=== PATIENT | male | born 1945 | race Caucasian/White ===

== ENCOUNTER → 2017-01-03 | Outpatient (CLI) | payer OTHER ==
[2017-01-03 13:25] LABS: BASO % 0.5 % (0.0-1.0); EOS # 0.2 K/mm3 (0.0-0.50); EOS % 3.8 % (0.0-3.0); LARGE UNSTAINED CELL # 0.1 K/mm3 (0.0-0.4); LARGE UNSTAINED CELL % 2.5 % (0.0-4.0); LYMPH # 1.6 K/mm3 (1.5-4.5); LYMPH % 28.3 % (24.0-44.0); MEAN CORPUSCULAR HGB CONC 34.4 g/dl (32.0-36.5); MEAN CORPUSCULAR VOLUME 96.1 fl (80.0-96.0); MONO # 0.3 K/mm3 (0.0-0.8); MONO % 6.4 % (0.0-5.0); NEUTROPHILS # 3.2 K/mm3 (1.8-7.7); NEUTROPHILS % 58.5 % (36.0-66.0); PLATELET COUNT, AUTOMATED 248 k/mm3 (150-450); RED CELL DISTRIBUTION WIDTH 12.9 % (11.5-14.5); WHITE BLOOD COUNT 5.4 K/mm3 (4.0-10.0)
[2017-01-03 14:25] LABS: ALBUMIN/GLOBULIN RATIO 1.38 (1.00-1.93); BILIRUBIN,TOTAL 0.5 MG/DL (0.2-1.0); CALCIUM LEVEL 9.2 MG/DL (8.8-10.2); CREATININE FOR GFR 1.36 MG/DL (0.70-1.30); GLOMERULAR FILTRATION RATE 55.3 (>49); POTASSIUM SERUM 4.8 MEQ/L (3.5-5.1); TOTAL PROTEIN 6.9 GM/DL (6.4-8.2)
== END ==
LOC: M SMT 07:49
PROVIDERS: ATTEND Family Medicine
DX: E11.22 Type 2 diabetes mellitus with diabetic chronic kidney disease (principal)

== ENCOUNTER → 2017-01-31 | Outpatient (CLI) | payer OTHER ==
--- NOTE | 2017-01-31 11:14 | REP ---
RIGHT SHOULDER SERIES: Three views of the right shoulder are performed. There is no acute fracture or dislocation. There is mild narrowing and spurring at the acromioclavicular and glenohumeral joints. IMPRESSION: Mild degenerative changes. Signed by Maykel Wilson MD 01/31/2017 12:21 P
== END ==
LOC: M SMT 10:22
PROVIDERS: ATTEND Family Medicine
DX: M25.511 Pain in right shoulder (principal)

== ENCOUNTER → 2017-08-26 | Outpatient (REF) | payer OTHER ==
[2017-08-26 14:20] LABS: FERRITIN 19 NG/ML (26-388); IRON (FE) 54 UG/DL (65-175); PERCENT SATURATION 14.8 % (19.7-50.0); TOTAL IRON BINDING CAPACITY 364 UG/DL (250-450)
== END ==
LOC: M LAB REF 13:48
DX: D50.9 Iron deficiency anemia, unspecified (principal)
CPT/HCPCS: 83550

== ENCOUNTER 2019-05-13 07:33 | Day surgery (SDC) | payer OTHER ==
[~2019-05-13] VITALS: Ht 175.3 cm; Wt 82.1 kg
[~2019-05-13 07:33] MED LIST: CENT1TAB2 PO; CLOB5CR TOP; CVS400CA PO; ECOT81TA5 PO; FERR325T3 PO; FINA5TAB2 PO; FLOM0.4C39 PO; ICAPTAB PO; LIDOCAINE 2% INJ 100 MG/5 ML SDV (FOR ANES.) As Ordered ONE; LISI-538 PO; METF500T13 PO; NS 1,000 ML IV ONE; OMEGCAP4 PO; PROPOFOL 200 MG/20 ML VIAL As Ordered ONE; RANI1SYP PO; SIMB1SUS OD; SIMV10TA2 PO; SITA50TAB PO
--- NOTE | 2019-05-13 08:54 | ROOR ---
Patient Name: Alexander Riley Procedure Date: 05/13/2019 8:35 AM Date of : 1945 Age: 74 Room: [facility], [facility]IN [facility] Gender: Male Note Status: Finalized Procedure: Colonoscopy Indications: Screening for colorectal malignant neoplasm Providers: Joaquín Diaz Jr, MD Referring MD: Margoth Pereira MD Requesting Provider: Medicines: Propofol per Anesthesia Complications: No immediate complications. Procedure: Pre-Anesthesia Assessment: - Prior to the procedure, a History and Physical was performed, and patient medications and allergies were reviewed. The patient is competent. The risks and benefits of the procedure and the sedation options and risks were discussed with the patient. All questions were answered and informed consent was obtained. Patient identification and proposed procedure were verified by the physician and the nurse in the pre-procedure area and in the procedure room. Mental Status Examination: alert and oriented. Airway Examination: normal oropharyngeal airway and neck mobility. Respiratory Examination: clear to auscultation. CV Examination: normal. ASA Grade Assessment: II - A patient with mild systemic disease. After reviewing the risks and benefits, the patient was deemed in satisfactory condition to undergo the procedure. The anesthesia plan was to use moderate sedation / analgesia (conscious sedation). Immediately prior to administration of medications, the patient was re-assessed for adequacy to receive sedatives. The heart rate, respiratory rate, oxygen saturations, blood pressure, adequacy of pulmonary ventilation, and response to care were monitored throughout the procedure. The physical status of the patient was re-assessed after the procedure. The Colonoscope was introduced through the anus and advanced to the cecum, identified by appendiceal orifice and ileocecal valve. The colonoscopy was performed without difficulty. The patient tolerated the procedure well. The quality of the bowel preparation was adequate. Findings: The rectum, recto-sigmoid colon, descending colon, transverse colon, ascending colon, cecum and appendiceal orifice appeared normal. Many small and large-mouthed diverticula were found in the sigmoid colon. A few small and large-mouthed diverticula were found in the transverse colon and ascending colon. A diminutive polyp was found in the ileocecal valve. The polyp was hyperplastic. The polyp was removed with a jumbo cold forceps. Resection and retrieval were complete. Impression: - The rectum, recto-sigmoid colon, descending colon, transverse colon, ascending colon, cecum and appendiceal orifice are normal. - Diverticulosis in the sigmoid colon. - Diverticulosis in the transverse colon and in the ascending colon. - One diminutive polyp at the ileocecal valve, removed with a jumbo cold forceps. Resected and retrieved. Recommendation: - Discharge patient to home (ambulatory). - Repeat colonoscopy in 5-10 years for surveillance based on pathology results. Joaquín Diaz MD Joaquín Diaz Jr, MD 05/13/2019 8:54:32 AM Electronically signed by Joaquín Diaz Jr, MD Number of Addenda: 0 Note Initiated On: 05/13/2019 8:35 AM Estimated Blood Loss: Estimated blood loss: none.
[2019-05-13 09:14] VITALS: BP 113/70
== END 2019-05-13 09:20 | disposition home or self-care (01) ==
LOC: M OPP 07:33
PROVIDERS: ATTEND Surgery
DX: Z12.11 Encounter for screening for malignant neoplasm of colon (principal); Z86.010 Personal history of colon polyps; K63.5 Polyp of colon; E11.9 Type 2 diabetes mellitus without complications; Z79.82 Long term (current) use of aspirin; Z79.84 Long term (current) use of oral hypoglycemic drugs; Z79.899 Other long term (current) drug therapy

== ENCOUNTER 2019-08-29 18:04 | Emergency (ER) | payer OTHER ==
[~2019-08-29] VITALS: Ht 175.3 cm; Wt 87.0 kg
[~2019-08-29 18:04] MED LIST changes: -LIDOCAINE 2% INJ 100 MG/5 ML SDV (FOR ANES.) As Ordered ONE; -NS 1,000 ML IV ONE; -PROPOFOL 200 MG/20 ML VIAL As Ordered ONE; -SIMV10TA2 PO; +SIMV10TA21 PO
[2019-08-29] MEDS ORDERED: FAMO1TAB11 (18:27)
[2019-08-29] MEDS ORDERED: SIMV20TA22 (18:27)
[2019-08-29] MEDS ORDERED: NS 500 ML IV ONE (19:15)
[2019-08-29 19:34] LABS: BASO % 0.2 % (0.0-1.0); EOS # 0.1 10^3/uL (0.0-0.5); HEMATOCRIT 38.9 % (42.0-52.0); HEMOGLOBIN 12.9 g/dl (13.5-17.5); LYMPH # 1.3 10^3/uL (1.5-5.0); LYMPH % 9.9 % (24.0-44.0); MEAN CORPUSCULAR HEMOGLOBIN 31.7 pg (27.0-33.0); MEAN CORPUSCULAR HGB CONC 33.2 g/dl (32.0-36.5); MEAN CORPUSCULAR VOLUME 95.6 fl (80.0-96.0); MONO # 0.8 10^3/uL (0.0-0.8); NEUTROPHILS # 11.2 10^3/uL (1.5-8.5); NEUTROPHILS % 82.5 % (36.0-66.0); PLATELET COUNT, AUTOMATED 251 10^3/uL (150-450); RED BLOOD COUNT 4.07 10^6/uL (4.30-6.10); WHITE BLOOD COUNT 13.6 10^3/uL (4.0-10.0)
[2019-08-29 20:10] LABS: ALBUMIN 3.8 GM/DL (3.2-5.2); ALT/SGPT 38 U/L (12-78); BILIRUBIN,DIRECT 0.1 MG/DL (0.0-0.2); BILIRUBIN,TOTAL 0.5 MG/DL (0.2-1.0); BLOOD UREA NITROGEN 20 MG/DL (7-18); CALCIUM LEVEL 8.8 MG/DL (8.8-10.2); CARBON DIOXIDE LEVEL 26 MEQ/L (21-32); CHLORIDE LEVEL 108 MEQ/L (98-107); CREATININE FOR GFR 1.22 MG/DL (0.70-1.30); GLOMERULAR FILTRATION RATE > 60.0 (>42); GLUCOSE, FASTING 112 MG/DL (70-100); LIPASE 211 U/L (73-393); POTASSIUM SERUM 3.8 MEQ/L (3.5-5.1); SODIUM LEVEL 142 MEQ/L (136-145); TOTAL PROTEIN 6.7 GM/DL (6.4-8.2)
[2019-08-29] MEDS ORDERED: ISOVUE-370 76% 100ML VIAL (Q9967) As Ordered ONE (20:18)
[2019-08-29] MEDS ORDERED: NS 1,000 ML IV ONE (20:30)
--- NOTE | 2019-08-29 21:36 | REPVR ---
PROCEDURE INFORMATION: Exam: CT Abdomen And Pelvis With Contrast Exam date and time: 08/29/2019 8:21 PM Age: 74 years old Clinical indication: Abdominal pain; Localized; Left lower quadrant (llq); Additional info: Llq pain, R/O diverticulitis TECHNIQUE: Imaging protocol: Computed tomography of the abdomen and pelvis with intravenous contrast. Radiation optimization: All CT scans at this facility use at least one of these dose optimization techniques: automated exposure control; mA and/or kV adjustment per patient size (includes targeted exams where dose is matched to clinical indication); or iterative reconstruction. Contrast material: ISOVUE 370; Contrast volume: 100 ml; Contrast route: IV; COMPARISON: RENAL US 02/08/2016 10:26 AM FINDINGS: Liver: Normal. No mass. Gallbladder and bile ducts: Normal. No calcified stones. No ductal dilation. Pancreas: Normal. No ductal dilation. Spleen: Normal. No splenomegaly. Adrenals: Normal. No mass. Kidneys and ureters: Small cysts in the kidneys. No calculi or hydronephrosis. Stomach and bowel: There is wall thickening with mural edema in the sigmoid colon and surrounding soft tissue stranding consistent with diverticulitis. No abscess or perforation. No bowel obstruction. No inflammatory changes elsewhere in the colon. The small bowel is unremarkable. Appendix: No evidence of appendicitis. Intraperitoneal space: Unremarkable. No free air. No significant fluid collection. Vasculature: Unremarkable. No abdominal aortic aneurysm. Lymph nodes: Unremarkable. No enlarged lymph nodes. Bladder: Unremarkable as visualized. Reproductive: Unremarkable as visualized. Bones/joints: Unremarkable. No acute fracture. Soft tissues: Unremarkable. IMPRESSION: Uncomplicated acute sigmoid diverticulitis. Electronically signed by: Jorge Cisneros On 08/29/2019 21:36:29 PM
[2019-08-29] MEDS ORDERED: ACETAMINOPHEN TAB 650MG DOSE (2X325MG) PO ONE (22:30)
[2019-08-29] MEDS ORDERED: metroNIDAZOLE (FLAGYL) 500 MG TAB PO ONE (22:30)
[2019-08-29] MEDS ORDERED: CIPROFLOXACIN 500 MG TAB PO ONE (22:30)
[2019-08-29] MEDS ORDERED: AUGM875T28 PO (23:04)
[2019-08-29 23:41] VITALS: BP 156/86
== END 2019-08-30 00:09 | disposition home or self-care (01) ==
LOC: M ED 18:04
DX: K57.32 Diverticulitis of large intestine without perforation or abscess without bleeding (principal); R03.0 Elevated blood-pressure reading, without diagnosis of hypertension; E86.0 Dehydration; R10.32 Left lower quadrant pain; E11.9 Type 2 diabetes mellitus without complications; I12.9 Hypertensive chronic kidney disease with stage 1 through stage 4 chronic kidney disease, or unspecified chronic kidney disease; E78.5 Hyperlipidemia, unspecified; K21.9 Gastro-esophageal reflux disease without esophagitis; D50.9 Iron deficiency anemia, unspecified; E21.3 Hyperparathyroidism, unspecified; Z87.01 Personal history of pneumonia (recurrent); Z87.891 Personal history of nicotine dependence; Z79.82 Long term (current) use of aspirin; Z79.84 Long term (current) use of oral hypoglycemic drugs; Z79.899 Other long term (current) drug therapy
CPT/HCPCS: 74177; 80048; 80076; 81001; 83605; 83690; 85025; 96360; 99284; Q9967

== ENCOUNTER → 2020-02-23 | Outpatient (CLI) | payer OTHER ==
[~2020-02-23] MED LIST changes: +AUGM875T28 PO; +FAMO1TAB11; +SIMV20TA22
[2020-04-09 07:05] LABS: ALBUMIN 3.9 GM/DL (3.2-5.2); ALT/SGPT 67 U/L (12-78); BILIRUBIN,TOTAL 0.5 MG/DL (0.2-1.0); BLOOD UREA NITROGEN 17 MG/DL (7-18); CALCIUM LEVEL 9.1 MG/DL (8.8-10.2); CARBON DIOXIDE LEVEL 28 MEQ/L (21-32); CHLORIDE LEVEL 108 MEQ/L (98-107); CHOLESTEROL LEVEL 154 MG/DL (<200); CHOLESTEROL RISK RATIO 3.948 (<5); CREATININE FOR GFR 1.25 MG/DL (0.70-1.30); GLOMERULAR FILTRATION RATE > 60.0 (>42); GLUCOSE, FASTING 110 MG/DL (70-100); HDL CHOLESTEROL 39 MG/DL (>40); LDL CHOLESTEROL 73 MG/DL (<100); MALB URINE SIEMENS 33.5 MG/L; NON-HDL-C 115 MG/DL; POTASSIUM SERUM 4.5 MEQ/L (3.5-5.1); SODIUM LEVEL 140 MEQ/L (136-145); TRIGLYCERIDES LEVEL 212 MG/DL (<150)
== END ==
LOC: M LAB 07:16
PROVIDERS: ATTEND Physician Assistant Medical
DX: E11.22 Type 2 diabetes mellitus with diabetic chronic kidney disease (principal)

== ENCOUNTER 2021-06-26 10:12 | Emergency (ER) | payer OTHER ==
[~2021-06-26] VITALS: Ht 176.5 cm; Wt 80.1 kg
[~2021-06-26 10:12] MED LIST changes: -LISI-538 PO; +LISI20TA33 PO
[2021-06-26] MEDS ORDERED: FLUO20CA22 (10:31)
[2021-06-26] MEDS ORDERED: FAMO40TA3 (10:31)
[2021-06-26] MEDS ORDERED: ALPR0.5T7 (10:31)
[2021-06-26] MEDS ORDERED: ALLO100T (10:31)
--- NOTE | 2021-06-26 11:34 | REP ---
INDICATION: hypertension COMPARISON: None. TECHNIQUE: Portable AP view of the chest FINDINGS: The mediastinum and cardiac silhouette are within normal limits for portable technique. The lung oliva are clear without acute consolidation, effusion, or pneumothorax. Skeletal structures are intact. IMPRESSION: No acute cardiopulmonary process appreciated. <Electronically signed by Josué Presley > 06/26/21 [id number]
[2021-06-26] MEDS ORDERED: hydrALAZINE 20MG/ML 1ML VIAL (J0360 PER 20MG) IV STA (11:55)
[2021-06-26 12:14] LABS: BASO % 0.4 % (0.0-1.0); EOS # 0.1 10^3/uL (0.0-0.5); EOS % 0.8 % (0.0-3.0); HEMATOCRIT 41.6 % (42.0-52.0); HEMOGLOBIN 14.1 g/dl (13.5-17.5); LYMPH # 1.4 10^3/uL (1.5-5.0); LYMPH % 17.9 % (24.0-44.0); MEAN CORPUSCULAR HGB CONC 33.9 g/dl (32.0-36.5); MEAN CORPUSCULAR VOLUME 94.5 fl (80.0-96.0); MONO # 0.6 10^3/uL (0.0-0.8); MONO % 7.6 % (2.0-8.0); NEUTROPHILS # 5.8 10^3/uL (1.5-8.5); NEUTROPHILS % 72.9 % (36.0-66.0); PLATELET COUNT, AUTOMATED 300 10^3/uL (150-450); WHITE BLOOD COUNT 7.9 10^3/uL (4.0-10.0)
[2021-06-26] MEDS ORDERED: **hydrALAZINE HCL** 25 MG TAB PO ONE (12:50)
[2021-06-26 12:53] LABS: ALBUMIN 3.9 GM/DL (3.2-5.2); ALT/SGPT 49 U/L (12-78); BILIRUBIN,DIRECT 0.1 MG/DL (0.0-0.2); BILIRUBIN,TOTAL 0.4 MG/DL (0.2-1.0); BLOOD UREA NITROGEN 16 MG/DL (7-18); CALCIUM LEVEL 9.8 MG/DL (8.8-10.2); CARBON DIOXIDE LEVEL 30 MEQ/L (21-32); CHLORIDE LEVEL 104 MEQ/L (98-107); CREATININE FOR GFR 1.04 MG/DL (0.70-1.30); ETHYL ALCOHOL (ETHANOL) < 0.003 % (0.000-0.010); GLOMERULAR FILTRATION RATE > 60.0 (>42); GLUCOSE, FASTING 93 MG/DL (70-100); NT-PRO BNP 84 PG/ML (<125); POTASSIUM SERUM 4.3 MEQ/L (3.5-5.1); SODIUM LEVEL 139 MEQ/L (136-145); TOTAL PROTEIN 7.1 GM/DL (6.4-8.2)
[2021-06-26 13:13] VITALS: BP 168/88
[2021-06-26 13:26] LABS: RSV AMPLIFICATION NEGATIVE (NEGATIVE)
[2021-06-26] MEDS ORDERED: HYDR25TA PO (15:11)
[2021-06-26] MEDS ORDERED: RA M10TA PO (15:11)
[2021-06-26 15:16] VITALS: BP 145/78
--- NOTE | 2021-06-27 05:47 | ECGEPIP ---
[facility] - ED Test Date: 2021-06-26 Pat Name: ERIC OCAMPO Department: Room: - Gender: Male Se[employer]er: : 1945 Requested By: JOHN Bryan Order Number: [id number] Reading MD: Semaj Yin Measurements Intervals [place] Rate: 69 P: 60 IA: 154 QRS: 16 QRSD: 94 T: 41 QT: 406 QTc: 435 Interpretive Statements Normal sinus rhythm POOR R WAVE PROGRESSION NO PRIORS FOR COMPARISON Electronically Signed on 06-27-2021 5:46:35 EST by Semaj Yin
== END 2021-06-26 15:29 | disposition home or self-care (01) ==
LOC: M ED 10:12
DX: I10 Essential (primary) hypertension (principal); G47.00 Insomnia, unspecified; E11.9 Type 2 diabetes mellitus without complications; E78.5 Hyperlipidemia, unspecified; N18.30 Chronic kidney disease, stage 3 unspecified; Z87.891 Personal history of nicotine dependence; Z79.82 Long term (current) use of aspirin; Z79.84 Long term (current) use of oral hypoglycemic drugs; Z79.899 Other long term (current) drug therapy
CPT/HCPCS: 36415; 71045; 80048; 80076; 81001; 82077; 83880; 84443; 84484; 85025; 87631; 93005; 93041; 94760; 96374; 99285; J0360

== ENCOUNTER → 2022-03-15 | Outpatient (CLI) | payer OTHER ==
[~2022-03-15] MED LIST changes: +ALLO100T; +ALPR0.5T7; +FAMO40TA3; +FLUO20CA22; +HYDR25TA PO; +RA M10TA PO
[2022-03-15 13:43] LABS: CREATININE, URINE 81.7 MG/DL; MALB URINE SIEMENS 67.9 MG/L; MAU/CREAT RATIO 83.1 MCG/MG (0.0-30.0)
== END ==
LOC: M LAB 11:02
PROVIDERS: ATTEND Family Medicine
DX: E11.22 Type 2 diabetes mellitus with diabetic chronic kidney disease (principal); N18.9 Chronic kidney disease, unspecified

== ENCOUNTER → 2022-09-02 | Outpatient (CLI) | payer MEDICARE, OTHER ==
[2022-09-02 09:34] LABS: HEMOGLOBIN A1c 6.5 % (4.0-6.0)
== END ==
LOC: M LAB 06:26
PROVIDERS: ATTEND Nurse Practitioner Family
DX: E11.22 Type 2 diabetes mellitus with diabetic chronic kidney disease (principal)

== ENCOUNTER → 2023-01-06 | Outpatient (CLI) | payer OTHER | LOC: M SLEEP 20:00 | PROVIDERS: ATTEND Internal Medicine | DX: G47.33 Obstructive sleep apnea (adult) (pediatric) (principal); G47.61 Periodic limb movement disorder ==

== ENCOUNTER → 2023-11-10 | Outpatient (CLI) | payer MEDICARE, OTHER ==
[~2023-11-10] MED LIST changes: -HYDR25TA PO; +HYDR25TA88 PO
== END ==
LOC: M PLAIMG 11:30
PROVIDERS: ATTEND Nurse Practitioner Family
DX: R05.9 Cough, unspecified (principal)

== ENCOUNTER → 2024-06-23 | Outpatient (REF) | payer OTHER, MEDICARE ==
[~2024-06-23] MED LIST changes: +FLUO-365; -FLUO20CA22
[2024-06-23 18:47] LABS: MAU/CREAT RATIO 17.5 MCG/MG (0.0-30.0)
== END ==
LOC: M LAB REF 17:17
PROVIDERS: ATTEND Nurse Practitioner Family
DX: E11.22 Type 2 diabetes mellitus with diabetic chronic kidney disease (principal)

== ENCOUNTER → 2024-09-09 | Outpatient (CLI) | payer MEDICARE, OTHER ==
[2024-09-09 11:25] LABS: BASO % 0.5 % (0.0-1.0); EOS # 0.2 10^3/uL (0.0-0.5); EOS % 2.8 % (0.0-3.0); HEMATOCRIT 45.9 % (42.0-52.0); HEMOGLOBIN 15.3 g/dl (13.5-17.5); LYMPH # 1.1 10^3/uL (1.5-5.0); LYMPH % 17.3 % (24.0-44.0); MEAN CORPUSCULAR HEMOGLOBIN 32.7 pg (27.0-33.0); MEAN CORPUSCULAR HGB CONC 33.3 g/dl (32.0-36.5); MEAN CORPUSCULAR VOLUME 98.1 fl (80.0-96.0); MONO # 0.5 10^3/uL (0.0-0.8); MONO % 7.4 % (2.0-8.0); NEUTROPHILS # 4.4 10^3/uL (1.5-8.5); NEUTROPHILS % 71.8 % (36.0-66.0); PLATELET COUNT, AUTOMATED 233 10^3/uL (150-450); RED BLOOD COUNT 4.68 10^6/uL (4.30-6.10); WHITE BLOOD COUNT 6.2 10^3/uL (4.0-10.0)
[2024-09-09 11:39] LABS: ERYTHROCYTE SEDIMENTATION RATE 6 mm/hr (0-20)
[2024-09-09 11:45] LABS: URIC ACID 4.2 MG/DL (3.7-9.2)
[2024-09-09 11:48] LABS: ALBUMIN 3.9 G/DL (3.2-5.2); BILIRUBIN,TOTAL 0.5 MG/DL (0.3-1.2); CALCIUM LEVEL 9.8 MG/DL (8.3-10.6); CREATININE FOR GFR 1.27 MG/DL (0.70-1.30); GLOMERULAR FILTRATION RATE 58.5 (>42); POTASSIUM SERUM 4.6 MMOL/L (3.5-5.1); TOTAL PROTEIN 6.9 G/DL (5.7-8.2)
== END ==
LOC: M PLALAB 09:27
PROVIDERS: ATTEND Nurse Practitioner Family
DX: M10.9 Gout, unspecified (principal)

== ENCOUNTER 2024-10-13 09:08 | Day surgery (SDC) | payer MEDICARE, OTHER ==
[~2024-10-13] VITALS: Ht 175.3 cm; Wt 84.1 kg
[~2024-10-13 09:08] MED LIST changes: -ALLO100T; +ALLO100T PO; -ALPR0.5T7; +ALPR0.5T7 PO; +ATOR40TA75 PO; +B COCAP4 PO; +CLOT15CR4 EX; +DORZ2SOL5 OU; +EYE HEALTH PO; -FLUO-365; +FLUO-365 PO; +FLUT15.819; +JARD1TAB PO; +LISI2.5T9 PO; +MIDAZOLAM INJ 2MG/2ML VIAL As Ordered ONE; +PHENYLEPHRINE 10% OPHTH SOL 5ML OS PRN; +PROBCAP14 PO; +VITA400T PO; +ZINC50TA14 PO; +fentaNYL 100 MCG/2 ML INJECTION As Ordered ONE
[2024-10-13] MEDS: OFLOXACIN 0.3 % (OCUFLOX) OPTH SOL 5ML OS ONE (09:59)
[2024-10-13] MEDS: LIDOCAINE 3.5 % 1ML OPHTH TOPICAL GEL OU ONE (09:59)
[2024-10-13] MEDS: PHENYLEPHRINE 2.5% OPHTH SOL 2ML OS SCH (09:59)
[2024-10-13] MEDS: TROPICAMIDE 1% OPHTH SOLN 15ML OS SCH (09:59)
[2024-10-13] MEDS: CYCLOPENTOLATE 1% OPHTH SOLN 2ML BTL OS SCH (09:59)
[2024-10-13] MEDS: CEFUROXIME 1MG/0.1ML INTRACAMERAL INJ As Ordered ONE (11:11)
[2024-10-13] MEDS: BSS IRRIG/VANCO(10MG)/TOBRA(5MG)/EPINEPH(1:1000-0.5CC)500ML BAG-ORONLY As Ordered ONE (11:11)
[2024-10-13] MEDS: DUOVISC (0.50ML VISCOAT/0.85ML PROVISC) OPHTH KIT As Ordered ONE (11:11)
[2024-10-13] MEDS: LIDOCAINE 1% SDV 5ML VIAL As Ordered ONE (11:11)
[2024-10-13] MEDS: ACETYLCHOLINE OPHTH SOLN 1% 2ML (MIOCHOL-E) As Ordered ONE (11:33)
[2024-10-13 11:38] VITALS: BP 150/68; TEMP 97.2; O2SAT 97
== END 2024-10-13 11:59 | disposition home or self-care (01) ==
LOC: M SDC 09:08
PROVIDERS: ATTEND Ophthalmology
DX: H25.12 Age-related nuclear cataract, left eye (principal); H40.812 Glaucoma with increased episcleral venous pressure, left eye; I11.9 Hypertensive heart disease without heart failure; N18.30 Chronic kidney disease, stage 3 unspecified; E11.9 Type 2 diabetes mellitus without complications; K57.92 Diverticulitis of intestine, part unspecified, without perforation or abscess without bleeding; E78.5 Hyperlipidemia, unspecified; K21.9 Gastro-esophageal reflux disease without esophagitis; D64.9 Anemia, unspecified; F41.9 Anxiety disorder, unspecified; Z79.82 Long term (current) use of aspirin; Z79.899 Other long term (current) drug therapy
CPT/HCPCS: 66991; C1783; J0697; J2250; J3010; V2632

== ENCOUNTER 2024-10-20 07:12 | Day surgery (SDC) | payer MEDICARE, OTHER ==
[~2024-10-20] VITALS: Ht 177.8 cm; Wt 84.2 kg
[~2024-10-20 07:12] MED LIST changes: -MIDAZOLAM INJ 2MG/2ML VIAL As Ordered ONE; +PHENYLEPHRINE 10% OPHTH SOL 5ML OD PRN; -PHENYLEPHRINE 10% OPHTH SOL 5ML OS PRN; -fentaNYL 100 MCG/2 ML INJECTION As Ordered ONE
[2024-10-20] MEDS: LIDOCAINE 3.5 % 1ML OPHTH TOPICAL GEL OU ONE (08:15)
[2024-10-20] MEDS: OFLOXACIN 0.3 % (OCUFLOX) OPTH SOL 5ML OD ONE (08:15)
[2024-10-20] MEDS: TROPICAMIDE 1% OPHTH SOLN 15ML OD SCH (08:39)
[2024-10-20] MEDS: CYCLOPENTOLATE 1% OPHTH SOLN 2ML BTL OD SCH (08:39)
[2024-10-20] MEDS: PHENYLEPHRINE 2.5% OPHTH SOL 2ML OD SCH (08:39)
[2024-10-20] MEDS ORDERED: fentaNYL 100 MCG/2 ML INJECTION As Ordered ONE (09:41)
[2024-10-20] MEDS ORDERED: MIDAZOLAM INJ 2MG/2ML VIAL As Ordered ONE (09:41)
[2024-10-20] MEDS: DUOVISC (0.50ML VISCOAT/0.85ML PROVISC) OPHTH KIT As Ordered ONE (10:04)
[2024-10-20] MEDS: LIDOCAINE 1% SDV 5ML VIAL As Ordered ONE (10:04)
[2024-10-20] MEDS: CEFUROXIME 1MG/0.1ML INTRACAMERAL INJ As Ordered ONE (10:04)
[2024-10-20] MEDS: POVIDONE-IODINE 5% OPHTH PREP SOL 30ML As Ordered ONE (10:04)
[2024-10-20] MEDS: BSS IRRIG/VANCO(10MG)/TOBRA(5MG)/EPINEPH(1:1000-0.5CC)500ML BAG-ORONLY As Ordered ONE (10:04)
[2024-10-20 10:29] VITALS: BP 142/68; TEMP 96.9; O2SAT 98
[2024-10-27] MEDS ORDERED: FLUO40CA PO (08:08)
[2024-10-27] MEDS ORDERED: JARD1TAB3 PO (08:08)
== END 2024-10-20 10:50 | disposition home or self-care (01) ==
LOC: M SDC 07:12
PROVIDERS: ATTEND Ophthalmology
DX: H40.1111 Primary open-angle glaucoma, right eye, mild stage (principal); E11.36 Type 2 diabetes mellitus with diabetic cataract; H25.11 Age-related nuclear cataract, right eye; H21.81 Floppy iris syndrome; I12.9 Hypertensive chronic kidney disease with stage 1 through stage 4 chronic kidney disease, or unspecified chronic kidney disease; N18.30 Chronic kidney disease, stage 3 unspecified; D63.1 Anemia in chronic kidney disease; N40.0 Benign prostatic hyperplasia without lower urinary tract symptoms; E78.00 Pure hypercholesterolemia, unspecified; K21.9 Gastro-esophageal reflux disease without esophagitis; Z79.84 Long term (current) use of oral hypoglycemic drugs; Z79.899 Other long term (current) drug therapy
CPT/HCPCS: 66989; C1783; J0697; J2250; J3010; V2632

== ENCOUNTER 2024-10-28 06:35 | Day surgery (SDC) | payer MEDICARE, OTHER ==
[~2024-10-28] VITALS: Ht 175.3 cm; Wt 83.9 kg
[~2024-10-28 06:35] MED LIST changes: +FLUO40CA PO; +JARD1TAB3 PO; -PHENYLEPHRINE 10% OPHTH SOL 5ML OD PRN
[2024-10-28] MEDS ORDERED: fentaNYL 100 MCG/2 ML INJECTION As Ordered ONE (07:10)
[2024-10-28] MEDS ORDERED: MIDAZOLAM INJ 2MG/2ML VIAL As Ordered ONE (07:10)
[2024-10-28] MEDS: LIDOCAINE 3.5 % 1ML OPHTH TOPICAL GEL OU ONE (07:50)
[2024-10-28] MEDS: LIDOCAINE 1% SDV 5ML VIAL As Ordered ONE (08:43)
[2024-10-28] MEDS: BSS IRRIG/VANCO(10MG)/TOBRA(5MG)/EPINEPH(1:1000-0.5CC)500ML BAG-ORONLY As Ordered ONE (08:44)
[2024-10-28] MEDS: TOBRADEX OPHTH OINT 3.5 GM As Ordered ONE (08:44)
[2024-10-28] MEDS: CEFUROXIME 1MG/0.1ML INTRACAMERAL INJ As Ordered ONE (09:08)
[2024-10-28 09:20] VITALS: BP 148/72; TEMP 96.7; O2SAT 98
== END 2024-10-28 09:30 | disposition home or self-care (01) ==
LOC: M SDC 06:35
PROVIDERS: ATTEND Ophthalmology
DX: S05.51XA Penetrating wound with foreign body of right eyeball, initial encounter (principal); W44.D0XA Magnetic metal object unspecified, entering into or through a natural orifice, initial encounter; E11.9 Type 2 diabetes mellitus without complications; I12.9 Hypertensive chronic kidney disease with stage 1 through stage 4 chronic kidney disease, or unspecified chronic kidney disease; E78.00 Pure hypercholesterolemia, unspecified; N18.30 Chronic kidney disease, stage 3 unspecified; N40.0 Benign prostatic hyperplasia without lower urinary tract symptoms; K21.9 Gastro-esophageal reflux disease without esophagitis; Z79.84 Long term (current) use of oral hypoglycemic drugs; Z79.899 Other long term (current) drug therapy; M10.9 Gout, unspecified; Z79.82 Long term (current) use of aspirin
CPT/HCPCS: 65220; J0697; J2250; J3010

== ENCOUNTER → 2024-11-17 | Outpatient (CLI) | payer MEDICARE, OTHER ==
[~2024-11-17] MED LIST changes: -FLOM0.4C39 PO; +TAMS-18 PO
[2024-11-17 17:06] LABS: HEMOGLOBIN A1c 7.5 % (4.0-6.0)
== END ==
LOC: M PLALAB 13:30
PROVIDERS: ATTEND Nurse Practitioner Family
DX: E11.22 Type 2 diabetes mellitus with diabetic chronic kidney disease (principal); N18.9 Chronic kidney disease, unspecified

== ENCOUNTER → 2025-05-17 | Outpatient (CLI) | payer OTHER | LOC: M RAD 07:33 | PROVIDERS: ATTEND Nurse Practitioner Family | DX: R94.5 Abnormal results of liver function studies (principal) ==

== ENCOUNTER → 2025-06-17 | Outpatient (CLI) | payer MEDICARE, OTHER ==
[~2025-06-17] MED LIST changes: +MELA10TA30 PO; -RA M10TA PO
[2025-06-17 07:21] LABS: BASO # 0.0 10^3/uL (0.0-0.2); BASO % 0.1 % (0.0-1.0); EOS # 0.0 10^3/uL (0.0-0.5); EOS % 0.0 % (0.0-3.0); LYMPH # 0.9 10^3/uL (1.5-5.0); LYMPH % 11.4 % (24.0-44.0); MONO # 0.4 10^3/uL (0.0-0.8); MONO % 5.3 % (2.0-8.0); NEUTROPHILS # 6.3 10^3/uL (1.5-8.5); NEUTROPHILS % 82.9 % (36.0-66.0); PLATELET COUNT, AUTOMATED 214 10^3/uL (150-450)
[2025-06-17 07:51] LABS: ALT/SGPT 52.0 U/L (7.0-40); AST/SGOT 34.0 U/L (<34); CALCIUM LEVEL 8.6 MG/DL (8.3-10.6); CARBON DIOXIDE LEVEL 23.0 MMOL/L (20-31); CHLORIDE LEVEL 107.0 MMOL/L (98-107); CREATININE FOR GFR 1.18 MG/DL (0.70-1.30); CREATININE, URINE 104.7 MG/DL; GLOMERULAR FILTRATION RATE 63.2 (>42); MALB URINE SIEMENS 101.0 MG/L; MAU/CREAT RATIO 96.4 MCG/MG (0.0-30.0); POTASSIUM SERUM 4.4 MMOL/L (3.5-5.1); SODIUM LEVEL 143.0 MMOL/L (136-145)
[2025-06-17 08:19] LABS: ESTIMATED AVERAGE GLUCOSE 163.0 MG/DL (60-110)
== END ==
LOC: M LAB 06:46
PROVIDERS: ATTEND Nurse Practitioner Family
DX: I10 Essential (primary) hypertension (principal); E11.22 Type 2 diabetes mellitus with diabetic chronic kidney disease